=== PATIENT | female | born 1945 | race Caucasian/White ===

== ENCOUNTER → 2020-06-05 | Day surgery (SDC) | payer MEDICARE ==
[~2020-06-05] VITALS: Ht 160 cm; Wt 68.9 kg
[~2020-06-05] MED LIST: ASPIRIN81 MG PO; ATENOLOL25 MG PO; FEOSOL325 MG PO; FUROSEMIDE 20MG20 MG PO; K-DUR20 MEQ PO; LEVOTHYROXINE50 MC1 PO; LEVOTHYROXINE50 MCG PO; NEXIUM40 MG PO; PERCOCET 5-3251 EACH PO; PHILLIPS' COLO1 EACH PO; TRAMADOL HCL50 MG PO; VITAMIN B-121000 MC1 PO; VITAMIN C60 MG PO; ZESTORETIC 20-1 EACH PO
[2020-06-05 06:52] LABS: HGB 13.3 g/dl (12.5-16.0); MCHC 32.4 g/dL (32.0-36.0); MCV 92.3 fL (78.0-100.0); MPV 10.9 fL (6.0-9.5); RBC 4.44 M/uL (4.20-5.40); RDW 12.8 % (11.5-14.0); WBC 5.7 K/uL (4.0-10.5)
[2020-06-05 07:07] LABS: ALBUMIN 3.4 g/dL (3.4-5.0); BILIRUBIN - TOTAL 0.3 mg/dL (0.2-1.0); BUN/CREAT RATIO (CALC) 18.8 RATIO; CREATININE 0.85 mg/dL (0.51-0.95); GLOBULIN (CALCULATION) 3.8 g/dL; POTASSIUM 3.7 mmol/L (3.5-5.1); TOTAL PROTEIN 7.2 g/dL (6.4-8.2)
== END | disposition home or self-care (01) ==
LOC: FAS 06:05
PROVIDERS: Orthopaedic Surgery
DX: G56.03 Carpal tunnel syndrome, bilateral upper limbs (principal); M18.9 Osteoarthritis of first carpometacarpal joint, unspecified; K21.9 Gastro-esophageal reflux disease without esophagitis; E03.9 Hypothyroidism, unspecified; I10 Essential (primary) hypertension; Z88.5 Allergy status to narcotic agent; Z88.0 Allergy status to penicillin; Z88.2 Allergy status to sulfonamides; Z87.891 Personal history of nicotine dependence
CPT/HCPCS: 36415; 80053; J1040; J1100; J1170; J2250; J2405; J2704; J3010

== ENCOUNTER 2020-11-05 05:45 | Inpatient (IN) | payer MEDICARE ==
[~2020-11-05] VITALS: Ht 160 cm; Wt 74.0 kg
[~2020-11-05 05:45] MED LIST changes: -ASPIRIN81 MG PO; -FEOSOL325 MG PO; -FUROSEMIDE 20MG20 MG PO; -K-DUR20 MEQ PO; -PHILLIPS' COLO1 EACH PO
[2020-11-05] MEDS ORDERED: PHILLIPS' COLO1 EACH PO (06:06)
[2020-11-05] MEDS ORDERED: PERCOCET 5-3251 EACH PO (06:45)
--- NOTE | 2020-11-05 16:02 | NUR ---
PT HAD A L TKREVISION THIS DATE. PT. HAS A ROLLING WALKER AND 07/15. PT. HAS AN APPT WITH SUJATAT 11/08/20 @ 3:00 P.M.
--- NOTE | 2020-11-05 16:03 | NUR ---
PT. HAS A ROLLING WALKER, 07/15. SHE HAS AN APPT. WITH JT OUTPT ON 11/08/20 @ 3:00 P.M.
[2020-11-06 05:57] LABS: BASOPHIL 0.2 % (0-2); EOSINOPHIL 0.5 % (0-7); HCT 28.6 % (37.0-47.0); HGB 9.6 g/dl (12.5-16.0); LYMPHOCYTE 20.3 % (15-48); MCHC 33.6 g/dL (32.0-36.0); MCV 92.3 fL (78.0-100.0); MONOCYTE 9.3 % (0-12); MPV 10.5 fL (6.0-9.5); NEUTROPHIL 69.4 % (41-80); NRBC 0; PLT 132 K/uL (150-400); RDW 13.9 % (11.5-14.0); WBC 6.5 K/uL (4.0-10.5)
[2020-11-06 06:20] LABS: BUN/CREAT RATIO (CALC) 24.1 RATIO; CREATININE 0.83 mg/dL (0.51-0.95); POTASSIUM 4.2 mmol/L (3.5-5.1)
[2020-11-06] MEDS ORDERED: ASPIRIN81 MG PO (09:18)
[2020-11-06] MEDS ORDERED: FEOSOL325 MG PO (09:18)
[2020-11-07 06:17] LABS: HCT 28.5 % (37.0-47.0); HGB 9.1 g/dl (12.5-16.0); LYMPHOCYTE 19.6 % (15-48); MCH 29.7 pg (25.0-31.0); MCHC 31.9 g/dL (32.0-36.0); MCV 93.1 fL (78.0-100.0); MONOCYTE 9.4 % (0-12); MPV 10.8 fL (6.0-9.5); NEUTROPHIL 67.8 % (41-80); NRBC 0; PLT 114 K/uL (150-400); RBC 3.06 M/uL (4.20-5.40); RDW 14.1 % (11.5-14.0); WBC 6.1 K/uL (4.0-10.5)
[2020-11-07] MEDS ORDERED: FUROSEMIDE 20MG20 MG PO (10:40)
[2020-11-07] MEDS ORDERED: K-DUR20 MEQ PO (10:40)
== END 2020-11-07 13:00 | disposition home or self-care (01) | DRG 467 ==
LOC: FMS 05:45 → FSDC 05:45 → FMS 07:00
PROVIDERS: ADMIT Orthopaedic Surgery
PROC: 0SPD0JZ Removal of Synthetic Substitute from Left Knee Joint, Open Approach (ICD-10-PCS; principal; 2020-11-05 07:00)
PROC: 0SRD0J9 Replacement of Left Knee Joint with Synthetic Substitute, Cemented, Open Approach (ICD-10-PCS; principal; 2020-11-05 07:00)
PROC: 0QUH07Z Supplement Left Tibia with Autologous Tissue Substitute, Open Approach (ICD-10-PCS; principal; 2020-11-05 07:00)
PROC: 0QBC0ZZ Excision of Left Lower Femur, Open Approach (ICD-10-PCS; principal; 2020-11-05 07:00)
DX: T84.033A Mechanical loosening of internal left knee prosthetic joint, initial encounter (principal); S82.202A Unspecified fracture of shaft of left tibia, initial encounter for closed fracture; I73.9 Peripheral vascular disease, unspecified; R60.9 Edema, unspecified; I10 Essential (primary) hypertension; Z20.822 Contact with and (suspected) exposure to COVID-19; E03.9 Hypothyroidism, unspecified; K21.9 Gastro-esophageal reflux disease without esophagitis; Z79.899 Other long term (current) drug therapy; Z79.82 Long term (current) use of aspirin; Z88.5 Allergy status to narcotic agent; Z88.0 Allergy status to penicillin; Z88.2 Allergy status to sulfonamides; R01.1 Cardiac murmur, unspecified; S60.221A Contusion of right hand, initial encounter; M19.042 Primary osteoarthritis, left hand; M19.041 Primary osteoarthritis, right hand; M17.0 Bilateral primary osteoarthritis of knee; M76.9 Unspecified enthesopathy, lower limb, excluding foot
CPT/HCPCS: 36415; 73560; 80048; 85025; 86850; 86900; 86901; 88305; 94010; 94760; 94762; 97110; 97162; 97166; 97530-GP; 97535; C1713; C1776; J0171; J1100; J1170; J1885; J2250; J2405; J2704; J2795; J3010; J3370; J7050; J7120

== ENCOUNTER 2021-04-06 07:57 | Emergency (ER) | payer MEDICARE ==
[~2021-04-06 07:57] MED LIST changes: +ASPIRIN81 MG PO; +FEOSOL325 MG PO; +FUROSEMIDE 20MG20 MG PO; +K-DUR20 MEQ PO; +LISINOPRIL-HCT1 EAC1 PO; +NEURONTIN300 MG PO; +PHILLIPS' COLO1 EACH PO
[2021-04-06 09:03] LABS: BASOPHIL 0.1 % (0-2); EOSINOPHIL 0.4 % (0-7); HCT 37.7 % (37.0-47.0); HGB 12.1 g/dl (12.5-16.0); MCH 28.7 pg (25.0-31.0); MCHC 32.1 g/dL (32.0-36.0); MCV 89.5 fL (78.0-100.0); MONOCYTE 5.6 % (0-12); MPV 10.6 fL (6.0-9.5); NEUTROPHIL 79.5 % (41-80); NRBC 0; PLT 145 K/uL (150-400); RBC 4.21 M/uL (4.20-5.40); RDW 13.6 % (11.5-14.0); WBC 7.2 K/uL (4.0-10.5)
[2021-04-06 09:23] LABS: ALBUMIN 2.9 g/dL (3.4-5.0); BILIRUBIN - TOTAL 0.4 mg/dL (0.2-1.0); BUN/CREAT RATIO (CALC) 24.7 RATIO; CREATININE 0.77 mg/dL (0.51-0.95); GLOBULIN (CALCULATION) 3.9 g/dL; POTASSIUM 3.9 mmol/L (3.5-5.1); TOTAL PROTEIN 6.8 g/dL (6.4-8.2)
[2021-04-06 09:54] LABS: BILIRUBIN NEGATIVE (NEGATIVE); BLOOD NEGATIVE Ery/uL (NEGATIVE); CLARITY CLEAR (CLEAR); COLOR YELLOW (YELLOW); GLUCOSE (U) NORMAL (NORMAL); LEUKOCYTES 1+ Leu/uL (NEGATIVE); NITRITE NEGATIVE (NEGATIVE); PROTEIN NEGATIVE (NEGATIVE); UROBILINOGEN 0.2 mg/dL (0.2-1.0)
[2021-04-06 10:09] LABS: BACTERIA 1+
[2021-04-06] MEDS ORDERED: ONDANSETRON ODT4 MG PO (12:43)
[2021-04-06] MEDS ORDERED: OMEPRAZOLE40 MG PO (12:43)
[2021-04-06] MEDS ORDERED: NORCO 5-325 TA1 EACH PO (13:36)
== END 2021-04-06 14:33 | disposition home or self-care (01) ==
LOC: FER 07:57
PROVIDERS: Internal Medicine
DX: U07.1 COVID-19 (principal); K83.8 Other specified diseases of biliary tract; I10 Essential (primary) hypertension; Z87.891 Personal history of nicotine dependence; Z23 Encounter for immunization; Z88.0 Allergy status to penicillin; Z88.5 Allergy status to narcotic agent
CPT/HCPCS: 36415; 71045; 80053; 81001; 83690; 84145; 84484; 85025; 93005; J1170; J2405; M0243; Q0244; U0002

== ENCOUNTER → 2021-09-19 | Day surgery (SDC) | payer MEDICARE ==
[~2021-09-19] VITALS: Ht 160 cm; Wt 66.7 kg
[~2021-09-19] MED LIST changes: +ASCORBIC ACID500 MG PO; +NORCO 5-325 TA1 EACH PO; +OMEPRAZOLE40 MG PO; +ONDANSETRON ODT4 MG PO; +ULTRAM50 MG PO
== END | disposition home or self-care (01) ==
LOC: FAS 12:16
DX: C21.0 Malignant neoplasm of anus, unspecified (principal); C79.9 Secondary malignant neoplasm of unspecified site; I10 Essential (primary) hypertension; E03.9 Hypothyroidism, unspecified; M81.0 Age-related osteoporosis without current pathological fracture; Z87.891 Personal history of nicotine dependence; Z88.5 Allergy status to narcotic agent; Z88.0 Allergy status to penicillin; Z88.2 Allergy status to sulfonamides
CPT/HCPCS: J1885; J2250; J2405; J2704; J3010; J7120

== ENCOUNTER → 2021-10-08 | Day surgery (SDC) | payer MEDICARE ==
[~2021-10-08] VITALS: Ht 160 cm; Wt 68.5 kg
[~2021-10-08] MED LIST changes: +ACETAMINOPHEN500 M1 PO; +AMLODIPINE BESYL5 MG PO; +MOTRIN600 MG PO
== END | disposition home or self-care (01) ==
LOC: FAS 08:00
DX: C21.0 Malignant neoplasm of anus, unspecified (principal); I10 Essential (primary) hypertension; K21.9 Gastro-esophageal reflux disease without esophagitis; E03.9 Hypothyroidism, unspecified; Z87.891 Personal history of nicotine dependence; Z88.0 Allergy status to penicillin; Z88.2 Allergy status to sulfonamides; Z88.5 Allergy status to narcotic agent; Z79.899 Other long term (current) drug therapy
CPT/HCPCS: 71045; 76000; C1788; J1100; J1644; J2001; J2250; J2405; J2704; J3010; J3370; J7050; J7120